=== PATIENT | male | born 1990 | race Hispanic/Latino ===

== ENCOUNTER 2025-03-06 16:25 | Emergency (ER) | payer OTHER, SELFPAY ==
--- NOTE | ~2025-03-06 | XR_ITS ---
CHEST RADIOGRAPH, PA AND LATERAL CLINICAL HISTORY: chest pain and tightness . COMPARISON: None available TECHNIQUE: PA and lateral views of the chest. FINDINGS The cardiomediastinal silhouette is unremarkable. The lungs are clear. IMPRESSION: No focal infiltrate or effusion. Reviewed, dictated and finalized at location A.
--- NOTE | 2025-03-06 16:26 | ECG_ITS ---
Test Date: 2025-03-06 16:32:49 Measurements Intervals [place] Rate: 85 P: 54 [place]: 145 QRS: 28 QRSD: 90 T: 42 QT: 314 QTc: 374 Interpretive Statements SINUS RHYTHM No previous ECG available for comparison Electronically Signed On 03-06-2025 22:10:09 CDT by Carmita Beltran M.D.
[2025-03-06 16:28] VITALS: BP 124/71; PULSE 94; RESP 18; TEMP 36.5; O2SAT 100
--- NOTE | 2025-03-06 16:33 | ED.CHESTPAIN ---
HPI - Chest Pain General Chief Complaint: Chest Pain <Alma Aguilar PA-C - Last Filed: 03/07/25 12:29> Stated Complaint: chest pain since thursday <Alma Aguilar PA-C - Last Filed: 03/07/25 12:29> Time Seen by Provider: 03/06/25 16:33 <Alma Aguilar PA-C - Last Filed: 03/07/25 12:29> Focused HPI: This is a 34 year old male that presents to the ER for chest pain. Ongoing intermittently over the last couple of days. Reports some associated shortness of breath. GENERAL: Well-appearing, well-nourished, and in no acute distress. HEAD: Normocephalic, atraumatic. CHEST: Clear to auscultation. ?No respiratory distress. HEART: Regular rate and rhythm.? NEURO: ?Alert and oriented x3. Patient screened in triage and initial orders placed.? ?Additional care and disposition to be based upon?diagnostic testing and treatment. <Alma Aguilar PA-C - Last Filed: 03/07/25 12:29> Focused HPI: This is a 34 year old male that presents to the ER for chest pain. Ongoing intermittently over the last couple of days. Reports some associated shortness of breath. GENERAL: Well-appearing, well-nourished, and in no acute distress. HEAD: Normocephalic, atraumatic. CHEST: Clear to auscultation. ?No respiratory distress. HEART: Regular rate and rhythm.? NEURO: ?Alert and oriented x3. Patient screened in triage and initial orders placed.? ?Additional care and disposition to be based upon?diagnostic testing and treatment. Agree with triage assessment. Patient also states that he has been under a lot of stress, has been working a lot and not sleeping well which could be contributing to his symptoms. States that the pain is worse when he gets very worked up. States that he has had similar symptoms in the past and they have told him that it was due to stress/anxiety. He denies any recent illness, fevers or chills. <Luis Powell MD - Last Filed: 03/06/25 20:33> Related Data Allergies/Adverse Reactions: Allergies Allergy/AdvReac Type Severity Reaction Status Date / Time No Known Allergies Allergy Verified 03/06/25 16:33 <Alma Aguilar PA-C - Last Filed: 03/07/25 12:29> Review of Systems Review of Systems: All systems are reviewed and are negative unless stated otherwise in the HPI. <Luis Powell MD - Last Filed: 03/06/25 20:33> PMFSH Surgical History Surgical History: Surgical History H/O cleft lip repair <Alma Aguilar PA-C - Last Filed: 03/07/25 12:29> Family History Family History: Family History Mother Diabetes mellitus Grandparent Diabetes mellitus <Alma Aguilar PA-C - Last Filed: 03/07/25 12:29> Social History Social History: Social History Smoking status: Never smoker Alcohol intake: never Substance use: never Substance use type: does not use Do You Feel Safe in your Home?: Yes Lack of Transportation: No Lack of Food: Never True Current Housing: I Have Housing Concerned About Future Housing: No Difficulty Paying Gas/Electric Bills: No Difficulty Paying for Meds: No Currently Unemployed: No Education: High School Diploma/GED Difficulty w/ Childcare or Family Care: No <Alma Aguilar PA-C - Last Filed: 03/07/25 12:29> Exam Narrative: General: Alert, awake, afebrile, in no acute distress. HEENT: PERRL, no rhinorrhea, no post nasal drip, oropharynx clear. Neck: Trachea midline, no JVD, no lymphadenopathy. Cardiovascular: Regular rate and rhythm, no murmurs, rubs or gallops, no peripheral edema. Respiratory: Clear to auscultation bilaterally, no tachypnea, no wheezing, no rhonchi, no rubs, no respiratory distress. Abdomen: Soft, nontender, nondistended, no rebound, no guarding, no peritoneal signs. Musculoskeletal: No joint swelling or deformity, normal muscle tone. Skin: No rashes or petechia, no signs of infection. Psychiatric: Alert and oriented, normal behavior and judgment for situation. Neurological: Alert and oriented to person, place, and time. Follows all commands. No focal deficits, speech is clear and fluent. <Luis Powell MD - Last Filed: 03/06/25 20:33> Course Vital Signs Vital signs: Vital Signs Temperature 97.7 F 03/06/25 16:28 Pulse Rate 94 03/06/25 16:28 Respiratory Rate 18 03/06/25 16:28 Blood Pressure 124/71 03/06/25 16:28 Pulse Oximetry 100 03/06/25 16:28 Oxygen Delivery Room Air 03/06/25 16:28 Temperature 98.6 F 03/06/25 18:29 Pulse Rate 74 03/06/25 20:28 Respiratory Rate 18 03/06/25 18:29 Blood Pressure 119/71 03/06/25 18:29 Pulse Oximetry 98 03/06/25 20:28 Oxygen Delivery Room Air 03/06/25 20:28 <Alma Aguilar PA-C - Last Filed: 03/07/25 12:29> Vital Signs Temperature 97.7 F 03/06/25 16:28 Pulse Rate 94 03/06/25 16:28 Respiratory Rate 18 03/06/25 16:28 Blood Pressure 124/71 03/06/25 16:28 Pulse Oximetry 100 03/06/25 16:28 Oxygen Delivery Room Air 03/06/25 16:28 Temperature 98.6 F 03/06/25 18:29 Pulse Rate 74 03/06/25 20:28 Respiratory Rate 18 03/06/25 18:29 Blood Pressure 119/71 03/06/25 18:29 Pulse Oximetry 98 03/06/25 20:28 Oxygen Delivery Room Air 03/06/25 20:28 <Luis Powell MD - Last Filed: 03/06/25 20:33> MDM - Chest Pain MDM Narrative Medical decision making narrative: The patient was evaluated by myself in the emergency department. History is obtained from patient who is an independent historian and physical exam was performed. External medical records were reviewed at this time. IV was established and pertinent tests were ordered. EKG was obtained which revealed sinus rhythm rate of 85 beats per minute. No ST changes, T wave inversions or evidence of acute ischemia. EKG was independently interpreted by me and is currently pending official cardiology read. Laboratory results obtained revealing no acute process. Two sets of troponins were obtained 3 hours apart noted to be negative. Imaging studies obtained included CXR which was independently interpreted by me revealing no acute cardiopulmonary process, which is pending final radiology interpretation. Differential diagnosis considerations include acute stress reaction, anxiety, infectious process such as pneumonia, acute viral syndrome, acute coronary syndrome although unlikely given patient's low heart score of 0. Comorbidities impacting this visit include none. I have evaluated and discussed social determinants of health with the patient that could potentially impact subsequent diagnosis and treatment plans. On repeat assessment of the patient, reevaluation revealed that the patient is doing well and is in no acute distress. Patient symptoms have improved since he arrived to our emergency department. Repeat vital signs were all reviewed and noted to be stable. Differential diagnosis and treatment plan were discussed with the patient at bedside. Patient agrees with discussion and after shared medical decision making agrees with discharge. All questions were answered to the patient's satisfaction. Patient will follow up with his PCP in 3-5 days. He was also provided with a Cardiology referral instructed to call several follow-up appointment if he continues to have these chest pains. Patient was provided with strict return precautions and instructed to return to the emergency department if any new or worsening symptoms develop. The patient was discharged in stable condition. <Luis Powell MD - Last Filed: 03/06/25 20:33> Lab Data Result diagrams: 03/06/25 16:39 03/06/25 16:39 <Alma Aguilar PA-C - Last Filed: 03/07/25 12:29> Labs: Lab Results 03/06/25 03/06/25 Range/Units 16:39 19:26 WBC 10.5 H (4.5-10.0) K/mm3 RBC 5.40 (4.6-6.20) M/mm3 Hgb 14.6 (14.0-18.0) g/dL Hct 43.6 (42.0-52.0) % MCV 80.7 (80-100) fl MCH 27.0 (26-34) pg MCHC 33.5 (32-36) g/dl RDW 11.9 (11.5-14.5) % Plt Count 323 (150-375) k/mm3 MPV 9.8 (7.4-10.4) fl Immature Gran % (Auto) 0.3 (0-0.5) % Neut % (Auto) 72.2 (45.5-73.1) % Lymph % (Auto) 20.4 (18.3-44.2) % [place] % (Auto) 6.2 (2.6-8.5) % Eos % (Auto) 0.4 (0-4.4) % Baso % (Auto) 0.5 (0.2-1.2) % Lymph # (Auto) 2.13 (0.9-3.2) K/mm3 [place] # (Auto) 0.7 H (0.1-0.6) K/mm3 Eos # (Auto) 0.0 (0-0.3) K/mm3 Baso # (Auto) 0.1 (0.0-0.1) K/mm3 Abs Immat Gran (auto) 0.03 (0.00-0.031) K/mm3 Absolute Neuts (auto) 7.6 H (1.3-6.7) K/mm3 Absolute Nucleated RBC 0.000 (0.0-0.012) K/mm3 Nucleated RBC % 0.0 (0.0-0.2) % PT 14.3 (11.1-14.7) Seconds INR 1.1 APTT 26.6 (22.3-36.8) Seconds Sodium 140 (137-145) mmol/L Potassium 4.0 (3.4-5.0) mmol/L Chloride 106 (98-107) mmol/L Carbon Dioxide 24 (22-30) mmol/L Anion Gap 10 (4-12) mmol/L BUN 15 (9-20) mg/dL Creatinine 1.03 (0.7-1.3) mg/dL Estim Creat Clear Calc 87 ml/min Estimated GFR > 60 (59 - ) Glucose 117 H (65-110) mg/dL Calcium 9.5 (8.4-10.2) mg/dL Total Bilirubin 0.5 (0.2-1.3) mg/dL AST 31 (17-59) U/L ALT 21 (6-50) U/L Alkaline Phosphatase 49 (38-126) U/L Troponin I < 0.012 < 0.012 (0.000-0.034) ng/mL Total Protein 7.5 (6.3-8.2) g/dL Albumin 4.5 (3.5-5.1) g/dL Lipase 74 (23-300) U/L <Alma Aguilar PA-C - Last Filed: 03/07/25 12:29> Lab Results 03/06/25 03/06/25 Range/Units 16:39 19:26 WBC 10.5 H (4.5-10.0) K/mm3 RBC 5.40 (4.6-6.20) M/mm3 Hgb 14.6 (14.0-18.0) g/dL Hct 43.6 (42.0-52.0) % MCV 80.7 (80-100) fl MCH 27.0 (26-34) pg MCHC 33.5 (32-36) g/dl RDW 11.9 (11.5-14.5) % Plt Count 323 (150-375) k/mm3 MPV 9.8 (7.4-10.4) fl Immature Gran % (Auto) 0.3 (0-0.5) % Neut % (Auto) 72.2 (45.5-73.1) % Lymph % (Auto) 20.4 (18.3-44.2) % [place] % (Auto) 6.2 (2.6-8.5) % Eos % (Auto) 0.4 (0-4.4) % Baso % (Auto) 0.5 (0.2-1.2) % Lymph # (Auto) 2.13 (0.9-3.2) K/mm3 [place] # (Auto) 0.7 H (0.1-0.6) K/mm3 Eos # (Auto) 0.0 (0-0.3) K/mm3 Baso # (Auto) 0.1 (0.0-0.1) K/mm3 Abs Immat Gran (auto) 0.03 (0.00-0.031) K/mm3 Absolute Neuts (auto) 7.6 H (1.3-6.7) K/mm3 Absolute Nucleated RBC 0.000 (0.0-0.012) K/mm3 Nucleated RBC % 0.0 (0.0-0.2) % PT 14.3 (11.1-14.7) Seconds INR 1.1 APTT 26.6 (22.3-36.8) Seconds Sodium 140 (137-145) mmol/L Potassium 4.0 (3.4-5.0) mmol/L Chloride 106 (98-107) mmol/L Carbon Dioxide 24 (22-30) mmol/L Anion Gap 10 (4-12) mmol/L BUN 15 (9-20) mg/dL Creatinine 1.03 (0.7-1.3) mg/dL Estim Creat Clear Calc 87 ml/min Estimated GFR > 60 (59 - ) Glucose 117 H (65-110) mg/dL Calcium 9.5 (8.4-10.2) mg/dL Total Bilirubin 0.5 (0.2-1.3) mg/dL AST 31 (17-59) U/L ALT 21 (6-50) U/L Alkaline Phosphatase 49 (38-126) U/L Troponin I < 0.012 < 0.012 (0.000-0.034) ng/mL Total Protein 7.5 (6.3-8.2) g/dL Albumin 4.5 (3.5-5.1) g/dL Lipase 74 (23-300) U/L <Luis Powell MD - Last Filed: 03/06/25 20:33> Imaging Data Radiologist's impression: ITS Impressions Chest X-Ray 03/06/25 16:44 IMPRESSION: No focal infiltrate or effusion. <Alma Aguilar PA-C - Last Filed: 03/07/25 12:29> Discharge Plan Discharge Clinical Impression: Atypical chest pain <Alma Aguilar PA-C - Last Filed: 03/07/25 12:29> Patient Disposition: Home <Alma Aguilar PA-C - Last Filed: 03/07/25 12:29> Condition: Improved <Alma Aguilar PA-C - Last Filed: 03/07/25 12:29> Instructions: Antibiotic Form, Chest Pain (ED) <Alma Aguilar PA-C - Last Filed: 03/07/25 12:29> Additional Instructions: Please follow-up with the family doctor within the next 3-5 days. You also provided with a Cardiology referral instructed to call to set up a follow-up appointment. Return emergency department if any new or worsening symptoms develop. <Alma Aguilar PA-C - Last Filed: 03/07/25 12:29> Patient Language: [place] <Alma Aguilar PA-C - Last Filed: 03/07/25 12:29> Prescriptions: No Action fluticasone propionate [Flonase Allergy Relief] 50 mcg/actuation spray,suspension 1 spray intranasal BID Qty: 48 0RF Rx Instructions: administer into each nostril <Alma Aguilar PA-C - Last Filed: 03/07/25 12:29> Follow-up/Referrals: Cameron Huynh DO [Physician] - 3 Days Bernardo Palmer MD [Primary Care Provider] - 3 Days <Alma Aguilar PA-C - Last Filed: 03/07/25 12:29> Time of Disposition: 20:29 <Alma Aguilar PA-C - Last Filed: 03/07/25 12:29> 20:29 <Luis Powell MD - Last Filed: 03/06/25 20:33>
[2025-03-06 16:47] LABS: Hematocrit 43.6 % (42.0-52.0); Hemoglobin 14.6 g/dL (14.0-18.0); Immature Granulocyte Percent A 0.3 % (0-0.5); Lymphocytes Absolute Auto 2.13 K/mm3 (0.9-3.2); Mean Corpuscular HGB Conc 33.5 g/dl (32-36); Mean Corpuscular Hemoglobin 27.0 pg (26-34); Mean Corpuscular Volume 80.7 fl (80-100); Nucleated Red Blood Cells Absolute Auto 0.000 K/mm3 (0.0-0.012); Nucleated Red Blood Cells Perc 0.0 % (0.0-0.2); Platelet Count Result 323 k/mm3 (150-375); Red Blood Count 5.40 M/mm3 (4.6-6.20); White Blood Count 10.5 K/mm3 (4.5-10.0)
[2025-03-06 16:58] LABS: Alanine Aminotransferase 21 U/L (6-50); Albumin Level 4.5 g/dL (3.5-5.1); Alkaline Phosphatase 49 U/L (38-126); Anion Gap 10 mmol/L (4-12); Aspartate Amino Transferase 31 U/L (17-59); Bilirubin,Total 0.5 mg/dL (0.2-1.3); Blood Urea Nitrogen 15 mg/dL (9-20); Calcium 9.5 mg/dL (8.4-10.2); Carbon Dioxide 24 mmol/L (22-30); Chloride 106 mmol/L (98-107); Estimated CRCL calculation 87 ml/min; Estimated Glomerular Filt Rate > 60; Glucose 117 mg/dL (65-110); INR 1.1; Lipase 74 U/L (23-300); Potassium 4.0 mmol/L (3.4-5.0); Prothrombin Time 14.3 Seconds (11.1-14.7); Sodium 140 mmol/L (137-145); Total Protein 7.5 g/dL (6.3-8.2)
[2025-03-06 16:59] LABS: Partial Thromboplastin Time 26.6 Seconds (22.3-36.8)
[2025-03-06 17:10] LABS: Troponin I < 0.012 ng/mL (0.000-0.034)
[2025-03-06 18:29] VITALS: BP 119/71; PULSE 76; RESP 18; TEMP 37; O2SAT 99
--- NOTE | 2025-03-06 19:22 | ECG_ITS ---
Test Date: 2025-03-06 19:22:33 Measurements Intervals [place] Rate: 69 P: 41 NM: 126 QRS: 34 QRSD: 88 T: 38 QT: 332 QTc: 356 Interpretive Statements SINUS RHYTHM NORMAL ELECTROCARDIOGRAM Compared to ECG 03/06/2025 16:32:49 No significant changes Electronically Signed On 03-08-2025 07:17:15 CDT by Bernardo Rowe M.D.
[2025-03-06 19:54] LABS: Troponin I < 0.012 ng/mL (0.000-0.034)
[2025-03-06 20:28] VITALS: PULSE 74; O2SAT 98
== END 2025-03-06 20:42 | disposition home or self-care (01) ==
PROVIDERS: Emergency Medicine; Emergency Provider Emergency Medicine; PCP Emergency Medicine
DX: R07.89 Other chest pain (principal)
CPT/HCPCS: 36415; 71046; 80053; 83690; 84484; 85025; 85610; 85730; 93005; 99284